=== PATIENT | male | born 1985 | race Two or more races ===

== ENCOUNTER 2021-06-10 17:59 | Emergency (ER) | payer MEDICAID ==
[~2021-06-10] VITALS: Ht 180.3 cm; Wt 97.7 kg
[2021-06-10] MEDS ORDERED: LORazepam 2 MG/ML VIAL IVP ONE (18:45)
[2021-06-10 19:08] LABS: BASOPHILS % (AUTO) 0.9 % (0.0-2.0); EOSINOPHILS % (AUTO) 0.1 % (1.0-6.0); HEMATOCRIT 37.6 % (41-53); HEMOGLOBIN 12.9 g/dL (13.5-17.5); LYMPHOCYTES # (AUTO) 0.4 K/uL (1.0-4.8); LYMPHOCYTES % (AUTO) 10.9 % (22.0-44.0); MEAN CORPUSCULAR HEMOGLOBIN 33.2 pg (26.0-34.0); MEAN CORPUSCULAR HGB CONC 34.3 G/dL (31.0-37.0); MEAN CORPUSCULAR VOLUME 97 fL (80-100); MONOCYTES # (AUTO) 0.4 K/uL (0.1-1.0); MONOCYTES % (AUTO) 8.9 % (2.0-9.0); NEUTROPHILS # (AUTO) 3.1 K/uL (1.8-7.7); NEUTROPHILS % (AUTO) 79.2 % (40.0-70.0); RED BLOOD CELL COUNT(AUTO) 3.89 MIL/uL (4.50-5.90); RED CELL DISTRIBUTION WIDTH 13.6 % (11.5-14.5)
[2021-06-10 19:17] LABS: ANION GAP 14 mmol/L (8-16); CALCIUM, TOTAL 8.7 mg/dL (8.8-10.5); CARBON DIOXIDE 25 mmol/L (22-29); CHLORIDE 101 mmol/L (98-107); GLOMERULAR FILTR. RATE CALC > 60 mL/min (>60); GLUCOSE,RANDOM 119 mg/dL (70-110); POTASSIUM 3.6 mmol/L (3.5-5.1); SODIUM SERUM 140 mmol/L (136-145); UREA NITROGEN, BLOOD 7 mg/dL (7-18)
[2021-06-10 19:22] LABS: D-DIMER 0.76 mg/L FEU (0.00-0.50); INR 1.1 (0.9-1.1); PROTHROMBIN TIME 11.5 SEC (9.4-11.6)
[2021-06-10 19:24] LABS: PLATELET COUNT (AUTO) 50 K/uL (150-450)
[2021-06-10 19:31] LABS: B-TYPE NATRIURETIC PEPTIDE 6 pg/mL (0-100)
[2021-06-10 19:47] LABS: ALANINE AMINOTRANSFERASE 140 U/L (12-78); ALBUMIN 4.1 g/dL (3.4-5.0); ALKALINE PHOSPHATASE 137 U/L (46-116); ASPARTATE AMINOTRANSFERASE 299 U/L (15-37); CREATINE KINASE, TOTAL ONLY 955 U/L (39-308); LIPASE 215 U/L (73-393); TOTAL PROTEIN, SERUM 8.6 g/dL (6.4-8.2)
[2021-06-10 19:51] LABS: COVID AG,FIA SOURCE NASOPHARYNGEAL
[2021-06-10] MEDS ORDERED: ACETAMINOPHEN 500 MG TABLET PO ONE (20:00)
[2021-06-10] MEDS ORDERED: SODIUM CHLORIDE 0.9% 1,000 ML IV ONE (20:00)
[2021-06-10] MEDS ORDERED: IOHEXOL 350 MG/ML 100 ML VIAL ONE (20:23)
[2021-06-10] MEDS ORDERED: SODIUM CHLORIDE 0.9% 100 ML ONE (20:23)
[2021-06-10 21:07] LABS: GLUCOSE, URINE (UA) NEGATIVE (NEGATIVE); KETONES,URINE 40 mg/dL (NEGATIVE); LEUKOCYTE ESTERASE ,URINE NEGATIVE (NEGATIVE); NITRATE,URINE NEGATIVE (NEGATIVE); OCCULT BLOOD,URINE NEGATIVE (NEGATIVE); PROTEIN,URINE SEE CONFIRM (NEGATIVE)
[2021-06-10 21:17] LABS: AMPHET/METH SCREEN,URINE NEGATIVE (NEGATIVE); BARBITURATE SCREEN, URINE NEGATIVE (NEGATIVE); BENZODIAZEPINES SCREEN,URINE NEGATIVE (NEGATIVE); CANNABINOID SCREEN,URINE NEGATIVE (NEGATIVE); COCAINE SCREEN,URINE NEGATIVE (NEGATIVE); METHADONE SCREEN, URINE NEGATIVE (NEGATIVE); OPIATE SCREEN,URINE NEGATIVE (NEGATIVE)
[2021-06-10 21:19] LABS: PHENCYCLIDINE SCREEN,URINE NEGATIVE (NEGATIVE)
[2021-06-10 21:36] LABS: BILIRUBIN,URINE PRELIM. POSITIVE (NEGATIVE)
[2021-06-10 21:37] LABS: APPEARANCE,URINE CLOUDY (CLEAR)
[2021-06-10 21:46] VITALS: BP 142/90
[2021-06-10 21:48] LABS: SULFOSALICYLIC ACID,URINE 2+ (Negative)
[2021-06-10 21:50] LABS: BACTERIA,URINE None Seen /HPF (None Seen); RBC,URINE None Seen /HPF (0-2); WBC,URINE 0-2 /HPF (0-5)
== END 2021-06-10 22:02 | disposition home or self-care (01) ==
LOC: EMS 17:59
DX: R07.9 Chest pain, unspecified (principal); D69.6 Thrombocytopenia, unspecified; R74.8 Abnormal levels of other serum enzymes; M62.82 Rhabdomyolysis; R00.0 Tachycardia, unspecified; F10.20 Alcohol dependence, uncomplicated; F14.90 Cocaine use, unspecified, uncomplicated; I10 Essential (primary) hypertension; Z20.822 Contact with and (suspected) exposure to COVID-19; Y90.4 Blood alcohol level of 80-99 mg/100 ml
CPT/HCPCS: 36415; 71045; 71275; 80053; 80307; 81001; 81003; 82550; 83690; 83880; 84484; 85025; 85379; 85610; 85730; 87426; 93005; 96361; 96374; 99285; G0480; J2060; J7030; J7050; Q9967; 81002